=== PATIENT | female | born 1950 | race Caucasian/White ===

== ENCOUNTER 2019-07-21 02:07 | Inpatient (IN) | payer MEDICARE ==
--- NOTE | 2019-07-21 02:20 | ED ---
Chest Pain HPI - General Stated Complaint: Chest Pain Time Seen by Provider: 07/21/19 02:10 - History of Present Illness Initial Comments: Alanis is a 69yo female who presents the emergency department today for evaluation of pressure-like retrosternal chest pain that began around 10 PM. Patient port she was doing the dishes when the pain began. Pain is been persistent since that time, she did take 4 aspirin at home with no improvement in the pain which prompted her come to the ER for further evaluation. Patient does have a distant history of vague cardiac disease however she reports she hasn't seen a doctor since about 1989. - Related Data Allergies Allergy/AdvReac Type Severity Reaction Status Date / Time ampicillin Allergy Rash/Hives Verified 07/21/19 02:18 Penicillins Allergy Rash/Hives Verified 07/21/19 02:18 Review of Systems ROS Statement: Those systems with pertinent positive or pertinent negative responses have been documented in the HPI. ROS Other: All systems not noted in ROS Statement are negative. General Exam - General Exam Comments Initial Comments: Physical Exam GENERAL: Patient is well-developed and well-nourished. Patient is nontoxic and well- hydrated and is in no distress. HENT: Normocephalic, Atraumatic. EYES: PERRL, EOMI PULMONARY: Unlabored respirations. No audible rales rhonchi or wheezing was noted. CARDIOVASCULAR: There is a regular rate and rhythm without any murmurs gallops or rubs. Pulses are present and equal in bilateral radial DP and PT ABDOMEN: Soft and nontender with normal bowel sounds. SKIN: Skin is clear with no lesions or rashes and otherwise unremarkable. : Deferred NEUROLOGIC: Patient is alert and oriented x3. Moving all extremities spontaneously MUSCULOSKELETAL: Normal extremities with adequate strength and full range of motion. No lower extremity swelling or edema. No calf tenderness. PSYCHIATRIC: Normal psychiatric evaluation. Course Vital Signs 07/21/19 07/21/19 07/21/19 02:10 02:21 02:44 Temperature 98.9 F Pulse Rate 94 96 Respiratory 20 24 20 Rate Blood Pressure 205/123 218/111 O2 Sat by Pulse 97 97 Oximetry 07/21/19 07/21/19 07/21/19 02:49 02:57 03:10 Temperature Pulse Rate 94 94 91 Respiratory 18 18 20 Rate Blood Pressure 176/110 163/99 163/103 O2 Sat by Pulse 96 98 96 Oximetry 07/21/19 03:18 Temperature Pulse Rate 90 Respiratory 18 Rate Blood Pressure O2 Sat by Pulse 97 Oximetry Chest Pain MDM - MDM The patient was seen and evaluated history was obtained patient and family at bedside 69-year-old female who does not see a doctor presenting with hypertension chest pain Labs and imaging ordered Patient took aspirin prior to arrival, nitro ordered here EKG was obtained, EKG is nonischemic Chest x-ray was reviewed there is no widened mediastinum or abnormality Labs resulted with mild abnormalities including a glucose of 200, troponin not elevated, BNP only 800s The patient was reevaluated, chest pain is improved significantly after nitro, she now has Nitropaste in place and blood pressure is improved significantly as well. Given the patient's lack of follow-up and likely undiagnosed medical comorbidities I do feel she warrants further observation here in the hospital. Patient is agreeable. Patient care was discussed Dr. Jaffe who agrees with plan for admission for hypertensive chest pain. Disposition Clinical Impression: Chest pain, HTN (hypertension), Hyperglycemia Disposition: ADMITTED IP TO THIS HOSP Condition: Stable Referrals: None,Stated [Primary Care Provider] - 1-2 days
[2019-07-21] MEDS ORDERED: ASPIRIN 81 MG PO STA (02:29)
[2019-07-21 02:36] LABS: Anisocytosis Slight; Basophils % (A) 0 %; Eosinophils # (A) 0.1 k/uL (0-0.7); Eosinophils % (A) 1 %; HCT 45.1 % (34.0-46.0); HGB 14.8 gm/dL (11.4-16.0); Lymphocytes % (A) 8 %; MCH 30.6 pg (25.0-35.0); MCHC 32.9 g/dL (31.0-37.0); MCV 92.9 fL (80.0-100.0); Mean Platelet Volume 7.3; Monocytes # (A) 0.2 k/uL (0-1.0); Monocytes % (A) 2 %; Neutrophils # (A) 10.6 k/uL (1.3-7.7); Neutrophils % (A) 89 %; Platelet Count 326 k/uL (150-450); RBC 4.85 m/uL (3.80-5.40); RDW 16.4 % (11.5-15.5)
[2019-07-21] MEDS: NITROGLYCERIN SL TABS 0.4 MG TAB SUBLINGUAL PRN ×3 (02:38→02:49)
[2019-07-21 02:43] LABS: ALT 20 U/L (9-52); AST 25 U/L (14-36); African American GFR (CKD) >90 (>60 ml/min/1.73 sqM); Albumin 4.5 g/dL (3.5-5.0); Alkaline Phosphatase 111 U/L (38-126); Anion Gap 11 mmol/L; Blood Urea Nitrogen 17 mg/dL (7-17); Calcium 9.6 mg/dL (8.4-10.2); Carbon Dioxide 26 mmol/L (22-30); Chloride 102 mmol/L (98-107); Glucose 200 mg/dL (74-99); Magnesium 1.8 mg/dL (1.6-2.3); Potassium 3.6 mmol/L (3.5-5.1); Sodium 139 mmol/L (137-145); Total Bilirubin 0.7 mg/dL (0.2-1.3)
[2019-07-21 02:47] LABS: INR 0.9 (<1.2); Partial Thromboplastin Time 24.7 sec (22.0-30.0); Prothrombin Time 9.7 sec (9.0-12.0)
--- NOTE | 2019-07-21 02:52 | XR ---
EXAM: XR Chest, 2 Views CLINICAL HISTORY: ITS.REASON XR Reason: Chest Pain TECHNIQUE: Frontal and lateral views of the chest. COMPARISON: No relevant prior studies available. FINDINGS: Lungs: No consolidation or mass. Pleural space: No effusion. Heart: No cardiomegaly. Mediastinum: Unremarkable. Bones/joints: No acute findings. IMPRESSION: No acute cardiopulmonary process.
[2019-07-21] MEDS ORDERED: NITROGLYCERIN OINT 1 INCH/GM PACKET TOPICAL STA (02:58)
[2019-07-21] MEDS ORDERED: MORPHINE SULFATE 4 MG/ML SYRINGE IV PRN (03:21)
[2019-07-21] MEDS ORDERED: cloNIDine HCL 0.1 MG TAB PO STA (03:43)
[2019-07-21] MEDS ORDERED: hydrALAZINE HCL 20 MG/ML 1 ML VIAL IVP STA ×2 (05:12→13:41)
--- NOTE | 2019-07-21 05:54 | P.HPIM ---
History of Present Illness H&P Date: 07/21/19 Chief Complaint: chest pain 69-year-old female with history of hypertension not currently on medications patient presented to the hospital with 3 hours history of retrosternal chest pressure rated as 9 out of 10 in severity started suddenly when she was walking to the kitchen pain was started radiating to the back associated with feeling nauseous no vomiting, also patient reported diaphoresis dizziness and shortness of breath with palpitations. She admits that she's been having random attacks like this for the past 30 years since 1989, however at times when she is very active she has no limitations like this. She has not been following up with any doctors as an outpatient. An every time she gets an episode like this she would rest for few minutes and would go away however at this time it persisted for almost 3 hours and was getting worse she took 4 pills of aspirin with no improvement. After 3 hours at one in the morning she decided that she needs to come to the hospital called her brother and he drove her to the hospital. Otherwise patient denies any coughing denies any fevers or chills denies any abdominal pain changes in bowel or urinary habits denies any trauma to the chest denies any recent traveling patient doesn't take any medications at home except for ibuprofen for her dental problems. Patient also reports getting dizzy spells with palpitations since the for which she never seek any medical attention. Of note she was also feeling more fatigued over the past few days compared to her usual self. In the ED blood work initially was unremarkable except for elevated glucose. Chest x-ray was unremarkable. EKG showed normal sinus rhythm. Patient was given nitro with some improvement in pain and admitted for chest pain to rule ou t acute coronary syndrome Review of Systems Pertinent positives as noted in HPI. All other systems were reviewed and are negative Past Medical History Past Medical History: No Reported History History of Any Multi-Drug Resistant Organisms: None Reported Past Surgical History: Adenoidectomy, Appendectomy, Tonsillectomy Past Psychological History: No Psychological Hx Reported Smoking Status: Current every day smoker Past Alcohol Use History: Occasional Past Drug Use History: None Reported - Past Family History family Additional Family Medical History / Comment(s): denies family history of premature CAD Medications and Allergies Allergies Allergy/AdvReac Type Severity Reaction Status Date / Time ampicillin Allergy Rash/Hives Verified 07/21/19 02:18 Penicillins Allergy Rash/Hives Verified 07/21/19 02:18 Physical Exam Vitals: Vital Signs Temp Pulse Resp BP Pulse Ox 07/21/19 05:43 86 18 132/86 97 07/21/19 05:34 87 18 147/85 98 07/21/19 05:12 87 18 193/110 97 07/21/19 04:40 82 14 185/103 98 07/21/19 03:30 87 20 163/103 95 07/21/19 03:18 90 18 97 07/21/19 03:10 91 20 163/103 96 07/21/19 02:57 94 18 163/99 98 07/21/19 02:49 94 18 176/110 96 07/21/19 02:44 96 20 218/111 97 07/21/19 02:21 24 07/21/19 02:10 98.9 F 94 20 205/123 97 Intake and Output 07/20/19 07/20/19 07/21/19 14:59 22:59 06:59 Other: Weight 60.509 kg Constitutional: No acute distress, conversant, pleasant Eyes: Anicteric sclerae, moist conjunctiva, no lid-lag Pupils equal round reactive to light ENMT: NC/AT, poor dental hygiene Oropharynx clear, no erythema, exudates Neck: Supple, FROM, no masses, or JVD No carotid bruits No thyromegaly Lungs: Clear to auscultation Clear to percussion Normal respiratory effort, no accessory muscle use Cardiovascular: Heart regular in rate and rhythm, diastolic murmur, gallops, or rubs No peripheral edema, pain is not reproducible Abdominal: Soft Nontender, no guarding, rebound or rigidity Abdomen moving with respiration Normoactive bowel sounds No hepatomegaly, No splenomegaly No palpable mass No abdominal wall hernia noted Skin: Normal temperature, tone, texture, turgor No induration No subcutaneous nodules No rash, lesions No ulcers Extremities: No digital cyanosis No clubbing Pedal pulses intact and symmetrical Radial pulses intact and symmetrical No calf tenderness Psychiatric: Alert and oriented to person, place and time Appropriate affect fair judgment Neuro Muscles Strength 5/5 in all 4 extremities Sensation to light touch grossly present throughout Cranial nerves II-XII grossly intact No focal sensory deficits Lymphatics: no palpable cervical or supraclavicular , or inguinal lymph nodes Results CBC & Chem 7: 09/13/19 02:24 07/21/19 02:24 Labs: Abnormal Lab Results - Last 24 Hours (Table) 07/21/19 07/21/19 Range/Units 02:24 02:24 WBC 12.0 H (3.8-10.6) k/uL RDW 16.4 H (11.5-15.5) % Neutrophils # 10.6 H (1.3-7.7) k/uL Glucose 200 H (74-99) mg/dL Assessment and Plan Assessment: 69-year-old female with history of hypertension not on medications. Patient has not been following up with any doctors. Presented today for chest pain admitted under observation with anticipated length of stay less than to midnight to rule out acute coronary syndrome Plan: chest pain rule out acute coronary syndrome hypertensive urgency Elevated blood sugar without history of diabetes Statin and aspirin Nitro when necessary Pain control Trend cardiac enzymes Cardiac monitoring Cardiology consult Check A1c patient started on beta aakash Continue to monitor blood pressure CODE STATUS:full code DVT prophylaxis: heparin subcu 3 times a day Discussed with: Patient, ER, RN Anticipated length of stay less than [address]: home A total of 60 minutes was spent on the care of this complex patient more than 50% of the time was spent in counseling and care coordination.
[2019-07-21] MEDS ORDERED: HEPARIN SODIUM,PORCINE 5,000 UNIT/ML 1 ML VIAL SQ SCH (08:00)
--- NOTE | 2019-07-21 08:19 | P.CRDCN ---
History of Present Illness Consult date: 07/21/19 Chief complaint: Chest pain History of present illness: This is a pleasant 69-year-old female patient with no significant past medical history presented to the hospital complaining of chest discomfort. The patient was in her usual state of health until earlier this morning when she woke up from sleep complaining of chest discomfort. She described her discomfort in the mid of the chest, as a sharp kind of discomfort, some radiation to the neck, without any associated symptoms of shortness of breath, dizziness, sweating, or syncope. The patient clearly states that the chest discomfort is worse once she is laying flat in bed and is better once she is sitting and leaning forward. No symptoms of fever or chills. She stated that she did not have any contact anybody who is sick but she has been struggling with deep infection recently. 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 The EKG showed sinus tachycardia. The chest x-ray showed no acute abnormalities. We have only one set of cardiac enzymes came in to be unr emarkable. I am concerned about pericarditis giving the nature of her chest discomfort and also pulmonary embolism to be ruled out. I am going to obtain a sed rate and CRP. An echocardiogram was already ordered and will follow-up with that. Beside that I would get a d-dimer to rule out pulmonary embolism. We'll follow- up with the serial cardiac enzymes. Follow-up with the patient. Past Medical History Past Medical History: No Reported History History of Any Multi-Drug Resistant Organisms: None Reported Past Surgical History: Adenoidectomy, Appendectomy, Tonsillectomy Past Psychological History: No Psychological Hx Reported Smoking Status: Current every day smoker Past Alcohol Use History: Occasional Past Drug Use History: None Reported - Past Family History family Additional Family Medical History / Comment(s): denies family history of premature CAD Medications and Allergies Allergies Allergy/AdvReac Type Severity Reaction Status Date / Time ampicillin Allergy Rash/Hives Verified 07/21/19 02:18 Penicillins Allergy Rash/Hives Verified 07/21/19 02:18 Physical Exam Vitals: Vital Signs Temp Pulse Resp BP Pulse Ox 07/21/19 06:17 86 18 125/69 97 07/21/19 06:00 88 18 122/88 97 07/21/19 05:54 87 18 139/73 97 07/21/19 05:43 86 18 132/86 97 07/21/19 05:34 87 18 147/85 98 07/21/19 05:12 87 18 193/110 97 07/21/19 04:40 82 14 185/103 98 07/21/19 03:30 87 20 163/103 95 07/21/19 03:18 90 18 97 07/21/19 03:10 91 20 163/103 96 07/21/19 02:57 94 18 163/99 98 07/21/19 02:49 94 18 176/110 96 07/21/19 02:44 96 20 218/111 97 07/21/19 02:21 24 07/21/19 02:10 98.9 F 94 20 205/123 97 Intake and Output 07/20/19 07/21/19 07/21/19 22:59 06:59 14:59 Other: Weight 60.509 kg - Constitutional General appearance: no acute distress - Respiratory Respiratory: bilateral: CTA - Cardiovascular Rhythm: regular Heart sounds: normal: S1, S2 Abnormal Heart Sounds: systolic murmur Results 07/21/19 02:24 07/21/19 02:24 Cardiac Enzymes 07/21/19 07/21/19 Range/Units 02:24 02:24 AST 25 (14-36) U/L Troponin I <0.012 (0.000-0.034) ng/mL Coagulation 07/21/19 Range/Units 02:24 PT 9.7 (9.0-12.0) sec APTT 24.7 (22.0-30.0) sec CBC 07/21/19 Range/Units 02:24 WBC 12.0 H (3.8-10.6) k/uL RBC 4.85 (3.80-5.40) m/uL Hgb 14.8 (11.4-16.0) gm/dL Hct 45.1 (34.0-46.0) % Plt Count 326 (150-450) k/uL Comprehensive Metabolic Panel 07/21/19 Range/Units 02:24 Sodium 139 (137-145) mmol/L Potassium 3.6 (3.5-5.1) mmol/L Chloride 102 (98-107) mmol/L Carbon Dioxide 26 (22-30) mmol/L BUN 17 (7-17) mg/dL Creatinine 0.71 (0.52-1.04) mg/dL Glucose 200 H (74-99) mg/dL Calcium 9.6 (8.4-10.2) mg/dL AST 25 (14-36) U/L ALT 20 (9-52) U/L Alkaline Phosphatase 111 (38-126) U/L Total Protein 8.0 (6.3-8.2) g/dL Albumin 4.5 (3.5-5.0) g/dL Current Medications Generic Name Dose Route Start Last Admin Trade Name Freq PRN Reason Stop Dose Admin Aspirin 325 mg 07/22/19 09:00 Aspirin PO DAILY [facility] Heparin Sodium (Porcine) 5,000 unit 07/21/19 08:00 Heparin SQ Q8HR [facility] Metoprolol Tartrate 25 mg 07/21/19 09:00 Lopressor PO BID [facility] Morphine Sulfate 4 mg 07/21/19 03:21 Morphine Sulfate (Inj) IV Q5M PRN Chest Pain Nitroglycerin 0.4 mg 07/21/19 02:29 07/21/19 02:49 Nitrostat SUBLINGUAL 0.4 mg Q5M PRN Administration Chest Pain Nitroglycerin 1 inch 07/21/19 06:00 Nitro-Bid Oint TOPICAL Q6HR [facility] Intake and Output 07/20/19 07/21/19 07/21/19 22:59 06:59 14:59 Other: Weight 60.509 kg 07/21/19 02:24 07/21/19 02:24 Assessment and Plan Assessment: Assessment #1 atypical/pleuritic chest discomfort #2 history of teeth infection #3 history of smoking Plan #1 rule out PE #2 rule out acute pericarditis #3 acute coronary syndrome to be ruled out as well #4 obtain d-dimer #5 obtain sed rate and CRP #6 follow-up on the echocardiogram #7 follow-up on the serial cardiac enzymes #8 follow-up with the patient. Thank you for allowing us participate in her care
[2019-07-21] MEDS ORDERED: METOPROLOL TARTRATE 25 MG TAB PO SCH (09:00)
[2019-07-21 09:44] VITALS: BMI 20.5
--- NOTE | 2019-07-21 11:25 | CT ---
EXAMINATION TYPE: CT angio chest DATE OF EXAM: 07/21/2019 COMPARISON: Chest x-ray earlier today HISTORY: Chest pain, SOB CT DLP: 233.4 mGycm. Automated Exposure Control for Dose Reduction was Utilized. CONTRAST: CTA scan of the thorax is performed with IV Contrast, patient injected with 100 mL of Isovue 370, pul monary embolism protocol. MIP Images are created on CT scanner and reviewed. FINDINGS: LUNGS: Background mild to borderline moderate underlying emphysematous change most prominent in the u pper lobes. Some patchy bibasilar linear scarring and/or atelectasis. No suspicious focal groundglass opacity or consolidation. No pleural effusion or pneumothorax is evident bilaterally. No suspicious nodules or masses. MEDIASTINUM: There is satisfactory enhancement of the pulmonary artery and its branches, there is no CT evidence for pulmonary embolism. There are no greater than 1 cm hilar or mediastinal lymph nodes . No cardiomegaly is seen. Trace pericardial effusion is noted. There is focal aortic dissection wi th some irregularity of the wall along superior and left lateral aspect involving the descending thor acic aorta. Dissection flap begins after three-vessel takeoff with false lumen extending medially and inferiorly. Some mild ill-defined adjacent fluid is present. There is suggestion of penetrating ulce r with abnormal anterior outpouching seen best on image 99. Aneurysm up to 3.8 cm is noted. OTHER: No additional significant abnormality is seen. IMPRESSION: 1. No CT evidence for acute pulmonary embolism. 2. There is mild to borderline moderate emphysematous changes without acute pulmonary process. There is aortic dissection proximal descending thoracic aorta with some wall irregularities and penetrating ulcer as well as some adjacent ill-defined fluid and mucosal irregularities raising concern for impe nding rupture. Cardiothoracic and/or endovascular surgical referral advised. Critical results communicated to patient's nurse via telephone at time of dictation.
[2019-07-21 11:27] VITALS: TEMP 98.1
--- NOTE | 2019-07-21 11:31 | ECHOF ---
Referral Reason:chest pain MEASUREMENTS -------- HEIGHT: 170.2 cm WEIGHT: 60.3 kg BP: RVIDd: 2.6 cm (< 3.3) IVSd: 1.1 cm (0.6 - 1.1) LVIDd: 4.1 cm (3.9 - 5.3) LVPWd: 1.5 cm (0.6 - 1.1) IVSs: 1.4 cm LVIDs: 3.3 cm LVPWs: 1.3 cm LA Diam: 5.2 cm (2.7 - 3.8) LAESV Index (A-L): 52.56 ml/m Ao Diam: 3.2 cm (2.0 - 3.7) AV Cusp: 1.8 cm (1.5 - 2.6) LA Diam: 3.5 cm (2.7 - 3.8) MV EXCURSION: 20.824 mm (> 18.000) MV EF SLOPE: 80 mm/s (70 - 150) EPSS: 0.3 cm MV E Ino: 0.67 m/s MV DecT: 263 ms MV A Ino: 0.81 m/s MV E/A Ratio: 0.83 RAP: 5.00 mmHg RVSP: 15.95 mmHg FINDINGS -------- Sinus rhythm. This was a technically adequate study. The left ventricular size is normal. Left ventricular wall thickness is normal. Overall left vent ricular systolic function is low-normal with, an EF between 50 - 55 %. Left ventricular fillimg pre ssure cannot be estimated due to severe mitral regurgitation. The right ventricle is normal in size. The left atrium is markedly dilated. LA is severely dilated >40 ml/m2 The right atrial size is normal. There is mild aortic valve sclerosis. There is no evidence of aortic regurgitation. Severe mitral regurgitation is present. Moderate prolapse of the posterior mitral valve leaflet. Mild tricuspid regurgitation present. There is no evidence of pulmonary hypertension. The right v entricular systolic pressure, as measured by Doppler, is 15.95mmHg. There is no pulmonic regurgitation present. The aortic root size is normal. There is no pericardial effusion. CONCLUSIONS -------- 1. Sinus rhythm. 2. This was a technically adequate study. 3. The left ventricular size is normal. 4. Left ventricular wall thickness is normal. 5. Overall left ventricular systolic function is low-normal with, an EF between 50 - 55 %. 6. Left ventricular fillimg pressure cannot be estimated due to severe mitral regurgitation. 7. The right ventricle is normal in size. 8. The left atrium is markedly dilated. 9. LA is severely dilated >40 ml/m2 10. The right atrial size is normal. 11. There is mild aortic valve sclerosis. 12. Severe mitral regurgitation is present. 13. Moderate prolapse of the posterior mitral valve leaflet. 14. Mild tricuspid regurgitation present. 15. There is no evidence of pulmonary hypertension. 16. The right ventricular systolic pressure, as measured by Doppler, is 15.95mmHg. 17. There is no pulmonic regurgitation present. 18. The aortic root size is normal. 19. There is no pericardial effusion. RECREATION MANAGER: Wendy Rivera RDCS
[2019-07-21] MEDS: NITROGLYCERIN OINT 1 INCH/GM PACKET TOPICAL SCH ×2 (12:29→15:18)
[2019-07-21] MEDS ORDERED: LABETALOL 200 MG in SODIUM CHLORIDE 0.9% 160 ML IV SCH (14:15)
--- NOTE | 2019-07-21 14:16 | P.GSCN ---
<Kari Parker - Last Filed: 07/21/19 13:50> History of Present Illness Consult date: 07/21/19 Reason for Consult: Proximal descending aortic aneurysm with dissection, possible impending rupture, surgical recommendations Requesting physician: Jonn Flanagan History of present illness: This is a 69 year old active female who does not follow with a physician on a regular basis, and only sees the doctor when she's sick. She has a previous medical history of coronary artery disease, hypertension, current tobacco dependence (smokes 1/2 pack per day, has been smoking for 53 years), pneumonia, and etoh use. She presented to [facility] emergency room in the middle of the night with complaints of sharp chest pain radiating to her back and upper neck into her jaw. This pain occurred while she was in her kitchen doing dishes. She does state she has had chest pain off and on for years, but this pain was different. Other symptoms were shortness of breath and pain with deep inspiration. Pain was relieved or at least more tolerable with leaning forward. Initially she was being evaluated for acute coronary syndrome. Chest x-ray was completed demonstrating no acute process. EKG demonstrated no acute ischemic changes. Troponins were drawn and were negative 2. She was placed on the observation unit with consultation to cardiology. Transthoracic echocardiogram was completed demonstrating low to normal LV systolic function with EF 50-55%, dilated left atrium, severe mitral valve regurgitation with prolapse of the posterior leaflet, and mild tricuspid regurgitation. A CTA of the chest was completed which ruled out pulmonary embolism, however there was an aortic aneurysm in the descending thoracic aorta with dissection, and the radiologist was concerned for impending rupture. Consultation was placed both to vascular and cardiothoracic surgery for recommendations and treatment options. Review of Systems Review of systems was completed and was negative except as noted. - Cardiovascular Reports as per HPI, Reports chest pain, Reports shortness of breath - Respiratory Reports pain on inspiration Past Medical History Past Medical History: Coronary Artery Disease (CAD), Chest Pain / Angina, Hype rtension, Pneumonia, Syncope Additional Past Medical History / Comment(s): Pt states she has had issues with her teeth/jaw for years-starting in 2002-she occasionally has a piece of bone work itself up and she removes it, pt states she was diagnosed with angina and possible Afib in 1989, cataract R eye, "floaters" bilateral eyes, syncope x 2 in the 1970s History of Any Multi-Drug Resistant Organisms: None Reported Past Surgical History: Appendectomy Additional Past Surgical History / Comment(s): tooth abscess which went up into her inner ear/root canal and had a bone fracture pt thinks might have been her jaw during surgery. Past Anesthesia/Blood Transfusion Reactions: No Reported Reaction Additional Past Anesthesia/Blood Transfusion Reaction / Comm: Pt had blood with childbirth. Past Psychological History: No Psychological Hx Reported Smoking Status: Current every day smoker Past Alcohol Use History: Abuse, Heavy Additional Past Alcohol Use History / Comment(s): 2 shots 3-5 days a week Past Drug Use History: None Reported - Past Family History Father Family Medical History: Myocardial Infarction ([place]) Additional Family Medical History / Comment(s): Father of a [place] at the age of 73 yrs. Mother Family Medical History: Cancer Additional Family Medical History / Comment(s): Mother had a several colostomies. family Additional Family Medical History / Comment(s): denies family history of premature CAD Medications and Allergies Home Medications Medication Instructions Recorded Confirmed Type Aspirin 324 mg PO ONCE 07/21/19 07/21/19 History Ibuprofen [Motrin Ib] 200 - 400 mg PO Q6H PRN 07/21/19 07/21/19 History Allergies Allergy/AdvReac Type Severity Reaction Status Date / Time ampicillin Allergy Severe Rash/Hives Verified 07/21/19 08:32 Penicillins Allergy Rash/Hives Verified 07/21/19 08:32 Surgical - Exam Vital Signs Temp Pulse Resp BP Pulse Ox 98.9 F 94 20 205/123 97 07/21/19 02:10 07/21/19 02:10 07/21/19 02:10 07/21/19 02:10 07/21/19 02:10 - General well developed, well nourished, no distress, moderate pain - Eyes PERRL, normal ocular movement - ENT no hearing loss, poor fci - Neck no masses, no bruits, trachea midline - Respiratory Lungs sounds diminished bilaterally. Respirations even, nonlabored. Currently on room air with oxygen saturation 98%. No chest wall deformities. No clubbing or cyanosis present. - Cardiovascular S1, S2 present. Systolic murmur present. Regular rate and rhythm, sinus rhythm on telemetry. Bounding palpable peripheral pulses bilaterally. No edema pres ent. No calf pain or tenderness noted. - Abdomen Abdomen: soft, non tender, bowel sounds - Genitourinary Deferred - Rectum Deferred - Integumentary no rash, no growths - Neurologic normal coordination, normal sensation - Musculoskeletal normal posture - Psychiatric oriented to time, oriented to person, oriented to place, speech is normal, memory intact Results - Labs 07/21/19 02:24 07/21/19 02:24 Abnormal Lab Results - Last 24 Hours (Table) 07/21/19 07/21/19 07/21/19 Range/Units 02:24 02:24 09:50 WBC 12.0 H (3.8-10.6) k/uL RDW 16.4 H (11.5-15.5) % Neutrophils # 10.6 H (1.3-7.7) k/uL D-Dimer 2.01 H (<0.60) mg/L FEU Glucose 200 H (74-99) mg/dL Diabetes panel 07/21/19 Range/Units 02:24 Sodium 139 (137-145) mmol/L Potassium 3.6 (3.5-5.1) mmol/L Chloride 102 (98-107) mmol/L Carbon Dioxide 26 (22-30) mmol/L BUN 17 (7-17) mg/dL Creatinine 0.71 (0.52-1.04) mg/dL Glucose 200 H (74-99) mg/dL Calcium 9.6 (8.4-10.2) mg/dL AST 25 (14-36) U/L ALT 20 (9-52) U/L Alkaline Phosphatase 111 (38-126) U/L Total Protein 8.0 (6.3-8.2) g/dL Albumin 4.5 (3.5-5.0) g/dL Calcium panel 07/21/19 Range/Units 02:24 Calcium 9.6 (8.4-10.2) mg/dL Albumin 4.5 (3.5-5.0) g/dL Pituitary panel 07/21/19 Range/Units 02:24 Sodium 139 (137-145) mmol/L Potassium 3.6 (3.5-5.1) mmol/L Chloride 102 (98-107) mmol/L Carbon Dioxide 26 (22-30) mmol/L BUN 17 (7-17) mg/dL Creatinine 0.71 (0.52-1.04) mg/dL Glucose 200 H (74-99) mg/dL Calcium 9.6 (8.4-10.2) mg/dL Adrenal panel 07/21/19 Range/Units 02:24 Sodium 139 (137-145) mmol/L Potassium 3.6 (3.5-5.1) mmol/L Chloride 102 (98-107) mmol/L Carbon Dioxide 26 (22-30) mmol/L BUN 17 (7-17) mg/dL Creatinine 0.71 (0.52-1.04) mg/dL Glucose 200 H (74-99) mg/dL Calcium 9.6 (8.4-10.2) mg/dL Total Bilirubin 0.7 (0.2-1.3) mg/dL AST 25 (14-36) U/L ALT 20 (9-52) U/L Alkaline Phosphatase 111 (38-126) U/L Total Protein 8.0 (6.3-8.2) g/dL Albumin 4.5 (3.5-5.0) g/dL - Imaging Chest x-ray: report reviewed, image reviewed CT scan - chest: report reviewed, image reviewed EKG: image reviewed Assessment and Plan Assessment: 1. Proximal descending aortic aneurysm with dissection, concern for impending rupture 2. Coronary artery disease with history of intermittent chest pain for years 3. Hypertension 4. Current tobacco dependence Plan: The patient was seen and examined at the bedside. Chart/diagnostics were reviewed. The case was discussed in detail with Dr. García who did review the patient's CT films. The patient appears to have a type B aortic dissection. We recommend tight blood pressure control with beta blockers, preferably esmolol. The patient is awaiting transfer to [facility]. She may need endovascular surgery. Vascular surgery has been consulted and they are aware. Medical management of other comorbidities per primary care service. Thank you Dr. Flanagan for this consult. Please call us with any further questions. Time with Patient: Greater than 30 <Simone García - Last Filed: 07/24/19 14:16> Surgical - Exam Vital Signs Temp Pulse Resp BP Pulse Ox 98.9 F 94 20 205/123 97 07/21/19 02:10 07/21/19 02:10 07/21/19 02:10 07/21/19 02:10 07/21/19 02:10 Results - Labs 07/21/19 02:24 07/21/19 02:24 Assessment and Plan Plan: The patient is a 69-year-old female who presented to the emergency department with chest pain radiating to the back. CTA of the chest reveals a type B dissection with origination just distal to the takeoff of the left subclavian artery. It terminates in the descending thoracic aorta and does not involve any branches. There is no evidence of pleural effusion. Transthoracic echocardiogram does not reveal any evidence of pericardial effusion. There is no component of ascending aortic dissection. At this point I would recommend tight blood pressure control with an intravenous beta aakash along with pain control. Endovascular repair is an option however I will defer to vascular surgery for their opinion. There is no emergent indication for operative intervention on my part. Transfer to a tertiary center has already been initiated.
[2019-07-21 14:21] LABS: Glucose,Whole Blood 125 mg/dL (75-99)
--- NOTE | 2019-07-21 14:25 | P.DS ---
Providers Date of admission: 07/21/19 11:45 Expected date of discharge: 07/21/19 Attending physician: Amanda Mejia MD Consults: 07/21/19 03:21 Consult Physician Urgent Consulting Provider: Cardiology Davis Consult Reason/Comments: chest pain, HTN Do you want consulting provider notified?: Yes, Notify in am 07/21/19 11:47 Consult Physician Urgent Consulting Provider: Ortega Zepeda Consult Reason/Comments: descending thoracic disection Do you want consulting provider notified?: Yes 07/21/19 12:29 Consult Physician Stat Consulting Provider: Jonn Flanagan Consult Reason/Comments: ICU management Do you want consulting provider notified?: Yes 07/21/19 12:37 Consult Physician Stat Consulting Provider: Simone García Consult Reason/Comments: impending rupture of thoracic aortic aneurysm Do you want consulting provider notified?: Yes Primary care physician: Stated None Hospital Course: 69-year-old female with history of hypertension not currently on medications Patient presented to the hospital with 3 hours history of retrosternal chest pressure rated as 9 out of 10 in severity started suddenly when she was walking to the kitchen pain was started radiating to the back associated with feeling nauseous no vomiting, also patient reported diaphoresis dizziness and shortness of breath with palpitations. In the ED, her blood pressure was as high as 218 SBP over 123 DBP. CBC showed mild leukocytosis of 12. Correlation panel was negative. CMP was unremarkable except for glucose of 200. Troponin was less than 0.012, EKG showing normal sinus rhythm. Chest x-ray showed no acute process. Patient was given clonidine 0.1 mg by mouth along with hydralazine 10 mg IV 1 along with sublingual nitroglycerin. Patient was admitted for workup of hypertensive emergency and for chest pain rule out acute coronary syndrome. She was evaluated by cardiology. Cardiology recommended d-dimer along with ESR and CRP for possible pericarditis. D-dimer was positive and CTA chest was ordered to rule out PE. CTA of the chest showed aortic dissection proximal descending thoracic aorta with wall irregularities and penetrating ulcer, ill- defined fluid and mucosal irregularities rising concerns for impending rupture. Cardiothoracic surgery was consulted and recommended vascular surgery consult. Case was discussed with Dr. Flanagan and he recommended transfer to [facility] and ICU care in the meantime. [facility] was called and accepted the patient for transfer pending bed availability. Patient was started on a labetalol drip in the meantime. Assessment Descending aortic dissection Hypertensive urgency Elevated blood glucose without history of diabetes Pertinent Studies: Chest x-ray, chest CTA, echocardiogram Patient Condition at Discharge: Stable Plan - Discharge Summary Discharge Rx Participant: No New Discharge Prescriptions: No Action Aspirin 324 mg PO ONCE Ibuprofen [Motrin Ib] 200 - 400 mg PO Q6H PRN PRN Reason: DENTAL Pain Discharge Medication List Aspirin 324 mg PO ONCE 07/21/19 [History] Ibuprofen [Motrin Ib] 200 - 400 mg PO Q6H PRN 07/21/19 [History] Follow up Appointment(s)/Referral(s): None,Stated [Primary Care Provider] - 1-2 days
[2019-07-21 15:03] VITALS: BP 98/57; PULSE 70; RESP 19
--- NOTE | 2019-07-21 16:02 | P.CNPUL ---
History of Present Illness Consult date: 07/21/19 Requesting physician: Rachel Chavira Reason for consult: other (Dissecting aortic aneurysm) Chief complaint: Chest pain History of present illness: This is a 69-year-old female with known history of coronary artery disease, hypertension, pneumonia, and previous history of syncope. Patient is a [id number] smoker, presented to [facility] ER around 1 AM this morning, complaining of 1 day history of severe sharp chest pain radiating to the back, upper neck, and into her jaw. Pain occurred when she was doing dishes in her kitchen. Patient describes intermittent episodes of chest pains for many years, patient also describes symptoms of some shortness of breath, but no diaphoresis. No palpitations. Her EKG showed no evidence of acute ischemic changes. Troponins were negative 2. She was seen by cardiology on consultation, and transthoracic echocardiogram showed normal LV systolic function. Severely dilated left atrium and severe mitral regurgitation with pro lapse of the posterior leaflet. CT angiogram of the chest was done to rule out pulmonary embolism, and the radiologist was extremely concerned about the ascending aortic aneurysm with impending rupture. Hence patient was advised to be transferred to the intensive care unit, and I was asked to see her because her blood pressure was elevated. During my evaluation her blood pressure was 180/70 systolic, patient was in no form of respiratory distress, I recommended immediate transfer to the ICU, and I recommended labetalol drip at 2 mg/m, and to be titrated to a blood pressure at least 130 systolic. In the meantime, the admitting physician discussed her condition with [facility], and immediate plans were made to transfer the patient to [facility] as soon as possible. Again during my evaluation the patient had severe chest pain, described as 7/10, but no other symptoms associated with the pain. Pain was described as radiating to the back. Review of Systems Constitutional: Denies any weight loss, no fever, no chills. Pulmonary: Denies any shortness of breath but she did have chest pain no cough no fever no chills no hemoptysis. Cardiac: As noted in HPI. GI: Denies any nausea vomiting abdominal pain melena or hematemesis Genitourinary denies any dysuria frequency urgency or hematuria. Musko skeletal: Denies any weakness or paralysis HEENT: Denies any blurred vision dizziness or sore throat. Skin: Denies any rashes. Neurologic: Denies any headache blurred vision or dizziness. Endocrine: Denies any heat or cold intolerance. Psychiatric: Denies any symptoms of depression. Hematologic: Denies any clotting bleeding or bruising Past Medical History Past Medical History: Coronary Artery Disease (CAD), Chest Pain / Angina, Hypertension, Pneumonia, Syncope Additional Past Medical History / Comment(s): Pt states she has had issues with her teeth/jaw for years-starting in 2002-she occasionally has a piece of bone work itself up and she removes it, pt states she was diagnosed with angina and possible Afib in 1989, cataract R eye, "floaters" bilateral eyes, syncope x 2 in the History of Any Multi-Drug Resistant Organisms: None Reported Past Surgical History: Appendectomy Additional Past Surgical History / Comment(s): tooth abscess which went up into her inner ear/root canal and had a bone fracture pt thinks might have been her jaw during surgery. Past Anesthesia/Blood Transfusion Reactions: No Reported Reaction Additional Past Anesthesia/Blood Transfusion Reaction / Comment(s): Pt had blood with childbirth. Past Psychological History: No Psychological Hx Reported Smoking Status: Current every day smoker Past Alcohol Use History: Abuse, Heavy Additional Past Alcohol Use History / Comment(s): 2 shots 3-5 days a week Past Drug Use History: None Reported - Past Family History Father Family Medical History: Myocardial Infarction ([place]) Additional Family Medical History / Comment(s): Father of a [place] at the age of 73 yrs. Mother Family Medical History: Cancer Additional Family Medical History / Comment(s): Mother had a several colostomies. family Additional Family Medical History / Comment(s): denies family history of pr emature CAD Medications and Allergies Home Medications Medication Instructions Recorded Confirmed Type Aspirin 324 mg PO ONCE 07/21/19 07/21/19 History Ibuprofen [Motrin Ib] 200 - 400 mg PO Q6H PRN 07/21/19 07/21/19 History Allergies Allergy/AdvReac Type Severity Reaction Status Date / Time ampicillin Allergy Severe Rash/Hives Verified 07/21/19 08:32 Penicillins Allergy Rash/Hives Verified 07/21/19 08:32 Physical Exam Vitals: Vital Signs Temp Pulse Pulse Resp BP BP Pulse Ox 07/21/19 15:00 70 19 98/57 94 L 07/21/19 14:50 68 23 83/61 94 L 07/21/19 14:40 68 26 H 83/61 92 L 07/21/19 14:30 59 L 19 98/68 94 L 07/21/19 14:20 77 25 H 153/80 95 07/21/19 14:10 1 L 07/21/19 13:40 81 07/21/19 13:30 88 07/21/19 13:20 82 07/21/19 13:10 86 07/21/19 13:00 91 07/21/19 12:50 96 07/21/19 12:40 92 07/21/19 12:30 80 07/21/19 12:20 94 07/21/19 12:10 83 07/21/19 12:00 84 07/21/19 11:51 84 07/21/19 11:40 83 07/21/19 11:30 85 07/21/19 11:25 98.1 F 86 18 166/90 98 07/21/19 11:20 79 07/21/19 11:10 85 07/21/19 11:00 89 07/21/19 10:50 78 07/21/19 10:40 89 07/21/19 10:30 84 07/21/19 10:20 95 07/21/19 10:10 81 07/21/19 10:00 85 07/21/19 09:50 85 07/21/19 09:40 82 07/21/19 09:30 100 07/21/19 09:20 89 07/21/19 09:10 78 07/21/19 09:00 85 07/21/19 08:50 81 07/21/19 08:40 79 07/21/19 08:30 86 07/21/19 08:20 78 07/21/19 08:10 78 07/21/19 08:00 77 07/21/19 07:50 78 07/21/19 07:40 85 07/21/19 07:30 80 07/21/19 07:20 82 07/21/19 07:10 80 07/21/19 07:00 87 07/21/19 06:56 91 07/21/19 06:20 90 125/69 94 L 07/21/19 06:17 86 18 125/69 97 07/21/19 06:10 87 22 122/102 07/21/19 06:00 88 18 122/88 97 07/21/19 05:54 87 18 139/73 97 07/21/19 05:43 86 18 132/86 97 07/21/19 05:34 87 18 147/85 98 07/21/19 05:12 87 18 193/110 97 07/21/19 04:40 82 14 185/103 98 07/21/19 03:30 87 20 163/103 95 07/21/19 03:18 90 18 97 07/21/19 03:10 91 20 163/103 96 07/21/19 02:57 94 18 163/99 98 07/21/19 02:49 94 18 176/110 96 07/21/19 02:44 96 20 218/111 97 07/21/19 02:21 24 07/21/19 02:10 98.9 F 94 20 205/123 97 Intake and Output 07/21/19 07/21/19 07/21/19 06:59 14:59 22:59 Intake Total 30 10 Balance 30 10 Intake: IV 10 0.9NS 10 Intake, IV Titration 30 Amount Labetalol 200 mg In 30 Sodium Chloride 0.9% 160 ml @ 2 MG/MIN 120 mls/hr IV .Q1H40M [facility] Rx#: [id number] Other: Voiding Method Toilet Weight 60.509 kg Physical Exam: Revealed a 69-year-old female in no distress. Head: Atraumatic, normocephalic. HEENT:[Neck is supple.] [No neck masses.] [No thyromegaly.] [No JVD.] PERRLA, EOMI, no icterus. Moist mucous membranes. Chest: [Clear throughout, no crackles, no rhonchi, no wheezes.] Minimal tende rness noted on the anterior chest wall, patient felt the same tenderness in her back between her scapulas. Cardiac Exam: [Normal S1 and S2, no S3 gallop, 2/6 systolic murmur thought the precordium. Abdomen: [Soft, nontender, no megaly, no rebound, no guarding, normal bowel sounds.] Extremities: [No clubbing, no edema, no cyanosis.] Neurological Exam: [No focal neurologic deficit.] Alert oriented 3. Skin: No rashes. Psychiatric: Normal mood affect and normal mental status examination. Lymphatics: No lymphadenopathy. Results - Laboratory Findings CBC and BMP: 07/21/19 02:24 07/21/19 02:24 PT/INR, D-dimer PT 9.7 sec (9.0-12.0) 07/21/19 02:24 INR 0.9 (<1.2) 07/21/19 02:24 D-Dimer 2.01 mg/L FEU (<0.60) H 07/21/19 09:50 Abnormal lab findings: Abnormal Labs 07/21/19 07/21/19 07/21/19 02:24 02:24 09:50 WBC 12.0 H RDW 16.4 H Neutrophils # 10.6 H D-Dimer 2.01 H Glucose 200 H POC Glucose (mg/dL) 07/21/19 14:08 WBC RDW Neutrophils # D-Dimer Glucose POC Glucose (mg/dL) 125 H - Diagnostic Findings CT scan - chest: image reviewed (As noted in HPI,) Assessment and Plan Assessment: Impression: 1 acute dissecting descending aortic aneurysm 2 hypertensive urgency, her blood pressure is poorly controlled in spite of the presenting symptom and finding hence patient will be given Apresoline, and we'll arrange for the patient be transferred to the ICU and placed on all labetalol. 3 history of multiple medical problems including underlying coronary artery disease, Recommendation: Transfer patient to the ICU, tight control of her blood pressure with labetalol, she is already on Apresoline, which is also on clonidine, and patient is in the process of being transferred to [facility]. We'll continue to follow while in the ICU. Discussed the patient's condition with cardiothoracic surgery and with the admitting physician. No family members at bedside to discuss her condition. Time with Patient: Greater than 30
[2019-07-22] MEDS ORDERED: ASPIRIN 325 MG TAB PO SCH (09:00)
--- NOTE | 2019-07-25 01:59 | CDI ---
Documentation Clarification Form Date: 07/25/19 From: Antwan Mendoza Phone: call [phone] Admit Date: 07/21/2019 11:45:00 AM Patient Name: Alanis Tyson Visit Number: [id number] Discharge Date: 07/21/2019 3:38:00 PM ATTENTION: The Clinical Documentation Specialists (CDI) and [facility] Coding Staff appreciate your assistance in clarifying documentation. Please respond to the clarification below the line at the bottom and electronically sign. The CDI & [facility] Coding staff will review the response and follow-up if needed. Please note: Queries are made part of the Legal Health Record. If you have any questions, please contact the author of this message via ITS. Dr. Rachel Chavira, Hypertension Emergency is documented in the DS note under hospital course as "Patient was admitted for workup of hypertensive emergency" But in ED note, consult note and DS assessment stated as "hypertensive urgency". Blood Pressure 176/110 163/99 163/103 Given hydralazine 10 mg IV 1 Please specify the type of hypertension such as: Emergency Urgency Other (please specify in the medical record) Clinically unable to further specify Unknown MTDD
== END 2019-07-21 15:38 | disposition short-term general hospital (02) | DRG 301 ==
LOC: EC 02:07 → 1SOBS 03:21 → OBSVTOIN 11:45 → 2SICU 14:00
PROVIDERS: ADMIT Internal Medicine; ATTEND Internal Medicine
DX: I71.00 Dissection of unspecified site of aorta (principal); R73.9 Hyperglycemia, unspecified; F17.210 Nicotine dependence, cigarettes, uncomplicated; I11.0 Hypertensive heart disease with heart failure; I16.0 Hypertensive urgency; I25.10 Atherosclerotic heart disease of native coronary artery without angina pectoris; I34.0 Nonrheumatic mitral (valve) insufficiency; Z82.49 Family history of ischemic heart disease and other diseases of the circulatory system; Z88.0 Allergy status to penicillin; Z90.49 Acquired absence of other specified parts of digestive tract; Z90.89 Acquired absence of other organs; Z86.19 Personal history of other infectious and parasitic diseases; Z87.01 Personal history of pneumonia (recurrent); Z98.41 Cataract extraction status, right eye; Z80.0 Family history of malignant neoplasm of digestive organs
CPT/HCPCS: 36415; 71046; 71275; 80053; 83036; 83735; 83880; 84484; 85025; 85379; 85610; 85652; 85730; 86140; 93005; 93306; 96374; 99285

== ENCOUNTER 2019-07-24 21:29 | Emergency (ER) | payer MEDICARE ==
[2019-07-24] MEDS ORDERED: SODIUM CHLORIDE 0.9% 1,000 ML IV STA (21:43)
[2019-07-24 22:13] LABS: Basophils # (A) 0.1 k/uL (0-0.2); Basophils % (A) 1 %; Eosinophils # (A) 0.2 k/uL (0-0.7); Eosinophils % (A) 1 %; HCT 33.4 % (34.0-46.0); HGB 10.8 gm/dL (11.4-16.0); Lymphocytes # (A) 1.9 k/uL (1.0-4.8); Lymphocytes % (A) 10 %; MCH 30.7 pg (25.0-35.0); MCHC 32.5 g/dL (31.0-37.0); MCV 94.4 fL (80.0-100.0); Mean Platelet Volume 8.4; Monocytes # (A) 1.1 k/uL (0-1.0); Monocytes % (A) 5 %; Neutrophils # (A) 16.2 k/uL (1.3-7.7); Neutrophils % (A) 83 %; Platelet Count 413 k/uL (150-450); RBC 3.53 m/uL (3.80-5.40); RDW 15.4 % (11.5-15.5); WBC 19.6 k/uL (3.8-10.6)
--- NOTE | 2019-07-24 22:21 | XR ---
EXAM: XR Chest, 1 View CLINICAL HISTORY: : chest pain TECHNIQUE: Frontal view of the chest. COMPARISON: 07/21/19 FINDINGS: Lungs: Interval development of area of density in the left lung, retrocardiac region that is new from the prior study this could represent a basilar infiltrate Pleural space: Unremarkable. No pneumothorax. Heart: Unremarkable. No cardiomegaly. Mediastinum: Unremarkable. Bones/joints: Unremarkable. IMPRESSION: Interval development of area of density in retrocardiac region left lung new from the prior study. This could represent a basilar infiltrate
[2019-07-24 22:24] LABS: Albumin 3.3 g/dL (3.5-5.0); Calcium 8.6 mg/dL (8.4-10.2); Magnesium 2.2 mg/dL (1.6-2.3); Potassium 4.9 mmol/L (3.5-5.1); Total Bilirubin 0.7 mg/dL (0.2-1.3); Total Protein 6.1 g/dL (6.3-8.2)
[2019-07-24 22:59] LABS: INR 1.1 (<1.2); Prothrombin Time 11.1 sec (9.0-12.0)
[2019-07-24 23:00] LABS: Partial Thromboplastin Time 20.8 sec (22.0-30.0)
--- NOTE | 2019-07-24 23:01 | CT ---
EXAM: CT Angiography Chest Without and With Intravenous Contrast CLINICAL HISTORY: : chest pain, hypotension, hx of dissection TECHNIQUE: Axial computed tomographic angiography images of the chest without and with intravenous contrast. CTDI is 7.4 mGy and DLP is 867 mGy-cm. This CT exam was performed using one or more of the following dose reduction techniques: automated exposure control, adjustment of the mA and/or kV according to patient size, and/or use of iterative reconstruction technique. 3D and MIP reconstructed images were created and reviewed. Coronal and sagittal reformatted images were created and reviewed. COMPARISON: No relevant prior studies available. FINDINGS: Pulmonary arteries: Unremarkable. No pulmonary embolism. Aorta: Stable appearance to aortic arch short segment dissection distal to the origins of the great vessels with delayed filling of the false lumen which generate mass effect on the true lumen. Interval development of hemorrhage in the left pleural effusion with associated atelectasis additionally contrast layering along the anterior left pleural effusion. The site of the active extravasation is not identified. Interval development of retrocrural and periaortic hematoma. Active extravasation is not identified. Lungs: Left-sided pleural effusion new from the prior study. Layering of contrast anteriorly suspicious for acute active extravasation from unknown source Pleural space: Unremarkable. No significant effusion. No pneumothorax. Heart: Interval development of pericardial collection suggestive of the hematoma. No active extravasation into the pericardial space is detected. Bones/joints: No acute fracture. No dislocation. Soft tissues: Unremarkable. Lymph nodes: Unremarkable. No enlarged lymph nodes. 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 Interval development of pericardial hematoma. Interval development of left pleural effusion with layering of contrast on the anterior margins of the effusion since the lip active hemorrhage however this site hemorrhage is not identified. . EXAM: CT Angiography Abdomen Without and With Intravenous Contrast CLINICAL HISTORY: chest pain, hypotension, hx of dissection TECHNIQUE: Axial computed tomographic angiography images of the abdomen without and with intravenous contrast. CTDI is 7.4 mGy and DLP is 867 mGy-cm. This CT exam was performed using one or more of the following dose reduction techniques: automated exposure control, adjustment of the mA and/or kV according to patient size, and/or use of iterative reconstruction technique. 3D and MIP reconstructed images were created and reviewed. Coronal and sagittal reformatted images were created and reviewed. COMPARISON: No relevant prior studies available. FINDINGS: Aorta: There is a stable appearance when compared to the prior study of the aortic arch dissection with delayed filling of the false lumen. This causes mass effect on the true lumen. There is interval development of hemorrhage along the pericardium and the inferior margin of the left pleural effusion. The point of extravasation is not identified Celiac trunk and mesenteric arteries: No acute findings. No occlusion or significant stenosis. Renal arteries: No acute findings. No occlusion or significant stenosis. Lung bases: Unremarkable. No mass. No consolidation. Liver: Unremarkable. No mass. Gallbladder and bile ducts: Unremarkable. No calcified stones. No ductal dilation. Pancreas: Unremarkable. No ductal dilation. No mass. Spleen: Unremarkable. No splenomegaly. Adrenals: Unremarkable. No mass. 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 Infarct Stomach and bowel: Unremarkable. No obstruction. No mucosal thickening. Intraperitoneal space: Unremarkable. No significant fluid collection. No free air. Bones/joints: No acute fracture. No dislocation. Soft tissues: Unremarkable. No mass. Lymph nodes: Unremarkable. No enlarged lymph nodes. IMPRESSION: No acute abnormality of the abdominal aorta. There are areas of decreased attenuation left and right kidney suspicious for areas of renal infarct <MYCVCSECTION> Critical Value Communications 07/24/19 22:46 Call Doctor Regarding Above results, called Dr. Andino on 07/24 22:46 (-04:00)
--- NOTE | 2019-07-24 23:20 | ED ---
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 Patient was transferred to an outside facility where she was evaluated by cardiothoracic surgery and recommended blood pressure management for management of her aneurysm. Patient was discharged home earlier today. Patient reports that she was home for only about 30 minutes, she took her oral dose of Lopressor and subsequently developed chest pain, 911 was called. Patient was found to have hypotension and intractable chest pain. Patient reports feeling like she can't take a deep breath. - Related Data Home Medications Medication Instructions Recorded Confirmed Ibuprofen [Motrin Ib] 200 - 400 mg PO Q6H PRN 07/21/19 07/24/19 Allergies Allergy/AdvReac Type Severity Reaction Status Date / Time ampicillin Allergy Severe Rash/Hives Verified 07/24/19 22:17 Penicillins Allergy Rash/Hives Verified 07/24/19 22:17 Review of Systems ROS Statement: Those systems with pertinent positive or pertinent negative responses have been documented in the HPI. ROS Other: All systems not noted in ROS Statement are negative. Past Medical History Past Medical History: Coronary Artery Disease (CAD), Chest Pain / Angina, Hype rtension, Pneumonia, Syncope Additional Past Medical History / Comment(s): Pt states she has had issues with her teeth/jaw for years-starting in 2002-she occasionally has a piece of bone work itself up and she removes it, pt states she was diagnosed with angina and possible Afib in 1989, cataract R eye, "floaters" bilateral eyes, syncope x 2 in the History of Any Multi-Drug Resistant Organisms: None Reported Past Surgical History: Appendectomy Additional Past Surgical History / Comment(s): tooth abscess which went up into her inner ear/root canal and had a bone fracture pt thinks might have been her jaw during surgery. Past Anesthesia/Blood Transfusion Reactions: No Reported Reaction Additional Past Anesthesia/Blood Transfusion Reaction / Comment(s): Pt had blood with childbirth. Past Psychological History: No Psychological Hx Reported Smoking Status: Current every day smoker Past Alcohol Use History: Abuse, Heavy Past Drug Use History: None Reported - Past Family History Father Family Medical History: Myocardial Infarction ([place]) Additional Family Medical History / Comment(s): Father of a [place] at the age of 73 yrs. Mother Family Medical History: Cancer Additional Family Medical History / Comment(s): Mother had a several colostomies. family Additional Family Medical History / Comment(s): denies family history of premature CAD General Exam - General Exam Comments Initial Comments: Physical Exam GENERAL: Distressed, toscano, diaphoretic HENT: Normocephalic, Atraumatic. EYES: PERRL, EOMI Conjunctival pallor PULMONARY: Crackles on left CARDIOVASCULAR: RRR Weak peripheral pulses Cool extremities ABDOMEN: Soft and nontender with normal bowel sounds. No pulsatile mass in abdomen SKIN: Pale, toscano, diaphoretic : Normal external genitalia NEUROLOGIC: Patient is alert and oriented x3. Moving all extremities spontaneously MUSCULOSKELETAL: Normal extremities with adequate strength and full range of motion. No lower extremity swelling or edema. No calf tenderness. PSYCHIATRIC: Anxious Limitations: no limitations Course Vital Signs 07/24/19 07/24/19 07/24/19 21:40 22:25 22:36 Temperature 97.7 F 97.5 F L 97.4 F L Pulse Rate 71 65 65 Respiratory 22 22 16 Rate Blood Pressure 87/64 105/61 106/80 O2 Sat by Pulse 97 98 100 Oximetry 07/24/19 07/25/19 22:47 00:09 Temperature 97.8 F 98.5 F Pulse Rate 70 80 Respiratory 20 18 Rate Blood Pressure 119/98 120/81 O2 Sat by Pulse 98 98 Oximetry Procedures - [place] Protocol (Time Out) Procedure Performed:: central line Nurse: Jack Mckeon Patient Identification (2 identifiers required): Chart, Verbal, Arm Band, Name, Birthdate, Medical Record Number, Social Security Number Patient/Legal Sales Performance Analyst has Confirmed: Identity Site: right fem Site Marked: Yes Site Verified With Patient/Guardian: Yes Final Confirmation: Procedure, Site - Central Line Placement Right Femoral Consent Obtained: verbal consent Patient Placed on Monitor/Pulse Ox: Yes Prep: gloves Central Line Prep: Chlorhexidine scrub, sterile drapes applied Local Anesthesia Used: Lidocaine 1% Ultrasound Used for Placement: Yes Central Line Lumen Inserted: triple Bloods Obtained for Lab: Yes Central Line Position: good blood return, all ports aspirated, flushed, capped, sutured in place with nylon Dressing Applied: sterile gauze/tape Patient Tolerated Procedure: well, no complications Complications: none Chest Pain [facility] - MDM The patient was seen and evaluated upon arrival to the ER History obtained from patient, EMS, and medical record Patient with a known descending aortic aneurysm identified 3 days ago Patient now hypotensive and diaphoretic Labs, imaging ordered Massive Transfusion protocol ordered CXR with new effusion Patient taken to CT Right femoral triple lumen IV placed CT scan with extravasation of blood into pericardium and left pleural space - no active bleeding noted on CT Patient received 4u PRBC, is hemodynamically stable Multiple attempts to contact [facility], unsuccessful, their phone lines appear to be down 22:[address] García, was unable to hear phone call x2 22:[address] Benton - out of town 22:[address] Nice who recommends transfer 22:58 Contacted [facility] - unable to accept due to lack of availability of ICU beds 23:01 Contacted [facility] - spoke with ER attending who will discuss case with Cardiothoracic 23:58 [facility] returned call, unable to accept transfer as they are currently taking another patient to OR for prolonged case 00:[address] [facility] - do not accept this type of dissection 00:11 Contacted [facility] - do not accept this type of dissection 00:21 Were able to contact [facility] - Patient care discussed with Acute Care Surgeon Dr Mcclure who accepts transfer to ER [facility] was contacted but decline to transfer due to weather [facility] contacted for transfer Patient remains hemodynamically stable s/p transfusion, blood pressure hovering at 100, we will not push further transfusion at this time his we don't want patient to become hypertensive. We will allow for progressive hypotension to prevent further bleeding. [facility] bedside for transport. They will be given the second cooler of blood, if the patient were to become hypotensive in route to [facility] they are to begin transfusion. Critical Care Time Critical Care Time: Yes Total Critical Care Time: 120 Critical Care Time: Critical Care Time Critical care time was exclusive of separately billable procedures and treating other patients and teaching time. Critical care was necessary to treat or prevent imminent or life-threatening deterioration. Given the critical condition in which the patient arrived, the patient was immediately assessed by myself and the nurse, and cardiac monitoring initiated due to the potential for rapid decompensation of the patient's clinical condition. During the course of the patients stay, I spent a considerable amount of time at the bedside performing serial re-evaluations of the patient's hemodynamic and clinical status because of the recognized potential threat to life or limb in this condition. I then had a chance to review not only all of the available current laboratory and radiographic studies obtained today, but I also reviewed old records available to me at the time. Additionally, any ancillary information available including airborne sensor specialist records were reviewed. Sequential vital signs were obtained. Disposition Clinical Impression: Aortic dissection Disposition: OTHER INSTITUTION NOT DEFINED Condition: Critical Referrals: None,Stated [Primary Care Provider] - 1-2 days - Out of Hospital Transfer - Req. Specs Out of Hospital Transfer - Requested Specifics: Other Emergency Center ([facility])
[2019-07-25 00:10] VITALS: BP 120/81; PULSE 80; RESP 18; TEMP 98.5
== END 2019-07-25 01:05 | disposition other institution (70) ==
LOC: EC 21:29
DX: I71.01 Dissection of thoracic aorta (principal); I95.9 Hypotension, unspecified; I71.2 Thoracic aortic aneurysm, without rupture; R61 Generalized hyperhidrosis; R58 Hemorrhage, not elsewhere classified; I25.119 Atherosclerotic heart disease of native coronary artery with unspecified angina pectoris; F17.200 Nicotine dependence, unspecified, uncomplicated; Z88.0 Allergy status to penicillin; Z82.49 Family history of ischemic heart disease and other diseases of the circulatory system
CPT/HCPCS: 36415 ×2; 93005; 86900; 86901; 80053; 83605; 83735; 84484; 85025; 85610; 85730; 86850; 86920; 71045; 71275; 74174; 99291; 99292 ×2; 96360; 96361; 36556; P9016; Q9967